=== PATIENT | male | born 1990 | race Caucasian/White ===

== ENCOUNTER 2023-10-31 18:01 | Emergency (ER) | payer OTHER, SELFPAY ==
[2023-10-31] VITALS (13 sets, daily range): BP systolic 129–136; BP diastolic 72–90; PULSE 79–97; TEMP 37.1; O2SAT 94–98; BMI 26.2
--- NOTE | 2023-10-31 18:09 | ECG_ITS ---
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
--- NOTE | 2023-10-31 18:09 | CT_ITS ---
[address] [address] Patient Name: RACHEL GOODMAN MRN: [id number] date: 1990 Sex: M Assigned Patient Location: ED.MAIN Current Patient Location: ER Accession/Order Number: [id number] Exam Date: 10/31/2023 18:44 Report Date: 10/31/2023 19:03 At the request of: LARRY STARK Procedure: CT head/brain wo con EXAMINATION: CT head/brain wo con, 10/31/2023 6:44 PM EDT HISTORY: Syncope COMPARISON: None. TECHNIQUE: CT scan of the head was performed without IV contrast. CT dose reduction technique was used, including Automated Exposure Control. FINDINGS: BRAIN PARENCHYMA/CSF SPACES: Ventricles are normal in size for age. There is no hemorrhage, mass effect or midline shift. There are no other significant findings. PARANASAL SINUSES: Clear. SKULL BASE AND CALVARIUM: Normal. EXTRACRANIAL SOFT TISSUES: Normal. CT/CT head/brain wo con IMPRESSION: No acute intracranial findings. Electronically authenticated by: LORE CARDENAS Date: 10/31/2023 19:03
--- NOTE | 2023-10-31 18:13 | ED.GENADUL1 ---
HPI HPI - General Adult General Chief complaint: Syncope Stated complaint: SYNCOPE Time Seen by Provider: 10/31/23 18:09 Source: patient Mode of arrival: ambulance History of Present Illness HPI narrative: Patient is a 32-year-old male who presents to the emergency department after syncopal episode at work. 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 He has been not feeling well for the last several days and states he has been having headaches. Head injury was not reported by EMS or his coworkers. He continues to have a headache at this time. He has had no fevers, upper respiratory symptoms, chest pain, dizziness, vomiting or diarrhea. He reports some pain to the left knee but no other areas of injury or pain. He has not been up to walk since he had the syncopal episode. Related Data Home Medications ?Medication ?Instructions ?Recorded ?Confirmed No Known Home Medications 10/31/23 10/31/23 Previous Rx's ?Medication ?Instructions ?Recorded ketorolac 10 mg tablet 10 mg PO TID PRN pain #10 tabs 10/31/23 ondansetron 4 mg disintegrating 4 mg PO Q6H PRN nausea and 10/31/23 tablet vomiting #12 tabs Allergies Allergy/AdvReac Type Severity Reaction Status Date / Time No Known Drug Allergies Allergy Verified 10/31/23 18:05 Opioid HPI Opioid Management Most Recent Opioid Data: Last ED Pain Assessment 10/31/23 18:25 Review of Systems ROS Constitutional Denies: fever or chills Ears, nose, mouth, and throat Denies: throat pain or nasal congestion Cardiovascular Denies: chest pain Respiratory Denies: shortness of breath or cough Gastrointestinal Denies: nausea or vomiting Musculoskeletal Reports: extremity pain; Denies: back pain or neck pain Integumentary/Breast Denies: rash Neurological Reports: headache; Denies: numbness in extremities, weakness in extremities or dizziness Hematologic/Lymphatic Denies: easy bruising or easy bleeding Exam Narrative Exam Narrative: Gen.: Awake, alert, in no distress Head: Normocephalic, atraumatic ENT: Moist mucous membranes Respiratory: No respiratory distress, lungs clear bilaterally Cardio: Regular rate and rhythm Gastrointestinal: Abdomen is soft, nondistended and nontender to palpation Extremities: Moves extremities equally, No swelling, ecchymosis or obvious deformity of the left knee Psych: Normal mood and affect Neuro: No focal neuro deficit Skin: Warm, dry, intact Constitutional Vital Signs, click to edit/add: Last Vital Signs Temp 98.7 F 10/31/23 18:02 Pulse 79 10/31/23 19:56 Resp 14 10/31/23 19:56 BP 129/72 10/31/23 19:56 Pulse Ox 96 10/31/23 19:56 O2 Del Method Room Air 10/31/23 18:02 Course Vital Signs Vital signs: Vital Signs Temperature 98.7 F 10/31/23 18:02 Pulse Rate 88 10/31/23 18:02 Respiratory Rate 14 10/31/23 18:02 Blood Pressure 136/90 10/31/23 18:02 Pulse Oximetry 98 10/31/23 18:02 Oxygen Delivery Method Room Air 10/31/23 18:02 Temperature 98.7 F 10/31/23 18:02 Pulse Rate 79 10/31/23 19:56 Respiratory Rate 14 10/31/23 19:56 Blood Pressure 129/72 10/31/23 19:56 Pulse Oximetry 96 10/31/23 19:56 Oxygen Delivery Method Room Air 10/31/23 18:02 Medical Decision Making MDM Narrative Medical decision making narrative: Stable vital signs on the arrival to the ER, no PE risk factors. CT of the brain, chest x-ray and the x-rays are unremarkable although the knee has a small joint effusion. He was placed in an Abdoulaye wrap and remains neurovascularly intact. IV fluids, Toradol given for headache. He had no episodes of emesis in the ER, he was able to ambulate. He is discharged home to increase fluids, follow-up with PCP and return to the ER if symptoms change or worsen Medical Records Medical records reviewed: Yes I reviewed the patient's medical records Lab Data Lab results reviewed: Yes I reviewed the patient's lab results Labs: Lab Results 10/31/23 Range/Units 18:31 WBC 7.0 (4.0-11.0) 10^3/uL RBC 4.82 (4.70-6.10) 10^6/uL Hgb 14.6 (14.0-18.0) g/dL Hct 43.1 (42.0-54.0) % MCV 89.4 (80.0-94.0) fL MCH 30.3 (25.9-34.0) pg MCHC 33.9 (29.9-35.2) g/dL RDW 12.4 (11.0-15.0) % Plt Count 187 (150-450) 10^3/uL MPV 9.7 (9.5-13.5) fL Neut % (Auto) 74.1 (43.0-75.0) % Lymph % (Auto) 20.3 L (20.5-60.0) % [place] % (Auto) 5.0 (1.7-12.0) % Eos % (Auto) 0.0 L (0.9-7.0) % Baso % (Auto) 0.3 (0.2-2.0) % Neut # (Auto) 5.2 (1.4-6.5) 10^3/uL Lymph # (Auto) 1.4 (1.2-3.8) 10^3/uL [place] # (Auto) 0.4 (0.3-0.8) 10^3/uL Eos # (Auto) 0.0 (0.0-0.7) 10^3/uL Baso # (Auto) 0.0 (0.0-0.1) 10^3/uL Abs Immat Gran (auto) 0.02 (0.00-0.03) 10^3/uL Imm/Tot Granulo (auto) 0.3 (0.0-0.5) % Sodium 142 (136-145) mmol/L Potassium 4.1 (3.5-5.1) mmol/L Chloride 106 (98-107) mmol/L Carbon Dioxide 25.5 (21.0-32.0) mmol/L Anion Gap 14.6 BUN 14.0 (7.0-18.0) mg/dL Creatinine 1.13 (0.70-1.30) mg/dL Est GFR ( Amer) >60 (>=60) Est GFR (Non-Af Amer) >60 (>=60) BUN/Creatinine Ratio 12.4 Glucose 88 (74-106) mg/dL Lactate 0.8 (0.4-2.0) mmol/L Calcium 9.0 (8.5-10.1) mg/dL Total Bilirubin 1.6 H (0.2-1.0) mg/dL AST 26 (15-37) U/L ALT 61 (16-63) U/L Alkaline Phosphatase 54 (46-116) U/L Total Creatine Kinase 172 (39-308) U/L Troponin I High Sens <4.0 L (4.0-76.1) pg/mL Total Protein 7.1 (6.4-8.2) g/dL Albumin 4.0 (3.4-5.0) g/dL Globulin 3.1 g/dL Albumin/Globulin Ratio 1.3 TSH 1.257 (0.358-3.740) uIU/mL Imaging Data CT scan - head: Attestation: I have reviewed the pertinent imaging results. Radiologist's impression: ITS Impressions Head CT 10/31/23 18:09 IMPRESSION: No acute intracranial findings. Electronically authenticated by: LORE CARDENAS Date: 10/31/2023 19:03 Chest X-Ray 10/31/23 18:55 IMPRESSION: No acute cardiopulmonary abnormality. Electronically authenticated by: LISA TRAN Date: 10/31/2023 19:48 Knee X-Ray 10/31/23 18:55 IMPRESSION: Small knee joint effusion without acute fracture. Electronically authenticated by: LISA TRAN Date: 10/31/2023 19:47 ECG Data Attestation: I personally reviewed and interpreted this ECG as follows: (Normal sinus rhythm at a rate of 91, no acute ST elevation or ectopy. EKG reviewed by attending physician) Discharge Plan Discharge Stand Alone Forms: Portal Instructions Chief Complaint: Syncope Clinical Impression: Syncope Patient Disposition: Home, Self-Care Time of Disposition Decision: 20:17 Condition: Good Prescriptions / Home Meds: New ketorolac 10 mg tablet 10 mg PO TID PRN (Reason: pain) Qty: 10 0RF ondansetron 4 mg tablet,disintegrating 4 mg PO Q6H PRN (Reason: nausea and vomiting) Qty: 12 0RF No Action No Known Home Medications Print Language: Malawian Instructions: Syncope (ED) Referrals: [facility] [Outside] - As soon as possible Physician,Non-Staff, MD [Primary Care Provider] - 1 week
[2023-10-31] MEDS: 0.9 % SODIUM CHLORIDE 1,000 ML 999 ML IV (18:22)
[2023-10-31] MEDS: KETOROLAC TROMETHAMINE 30 MG/ML VIAL IVP (18:22)
[2023-10-31 18:39] LABS: Basophils Percent Auto 0.3 % (0.2-2.0); Hematocrit 43.1 % (42.0-54.0); Hemoglobin 14.6 g/dL (14.0-18.0); Immature Granulocytes Abs Auto 0.02 10^3/uL (0.00-0.03); Immature Granulocytes Pct Auto 0.3 % (0.0-0.5); Lymphocytes Absolute Auto 1.4 10^3/uL (1.2-3.8); Lymphocytes Percent Auto 20.3 % (20.5-60.0); Mean Corpuscular HGB Conc 33.9 g/dL (29.9-35.2); Mean Corpuscular Hemoglobin 30.3 pg (25.9-34.0); Mean Corpuscular Volume 89.4 fL (80.0-94.0); Mean Platelet Volume 9.7 fL (9.5-13.5); Monocytes Absolute Auto 0.4 10^3/uL (0.3-0.8); Neutrophils Absolute Auto 5.2 10^3/uL (1.4-6.5); Neutrophils Percent Auto 74.1 % (43.0-75.0); Platelet Count 187 10^3/uL (150-450); Red Blood Count 4.82 10^6/uL (4.70-6.10); Red Cell Distribution Width 12.4 % (11.0-15.0)
--- NOTE | 2023-10-31 18:55 | XR_ITS ---
The [address] [address] Patient Name: RACHEL GOODMAN MRN: [id number] date: 1990 Sex: M Assigned Patient Location: ED.MAIN Current Patient Location: ER Accession/Order Number: [id number] Exam Date: 10/31/2023 18:49 Report Date: 10/31/2023 19:48 At the request of: LARRY STARK Procedure: XR chest 1V EXAMINATION: XR chest 1V 10/31/2023 4:47 PM PDT HISTORY: Syncope TECHNIQUE: Single frontal view of the chest acquired. COMPARISONS: None. FINDINGS: Lines/tubes/other: None. Heart and mediastinum: The heart and the mediastinum are within normal limits for technique. Bones: No acute osseous abnormality. Lungs: The lungs are clear. There is no evidence of pneumonia or pulmonary edema. Pleura: There is no significant pleural effusion or pneumothorax. Other: None. XR/XR chest 1V IMPRESSION: No acute cardiopulmonary abnormality. Electronically authenticated by: LISA TRAN Date: 10/31/2023 19:48
--- NOTE | 2023-10-31 18:55 | XR_ITS ---
[place] [id number] Patient Name: RACHEL GOODMAN MRN: [id number] date: 1990 Sex: M Assigned Patient Location: ED.MAIN Current Patient Location: ED.MAIN Accession/Order Number: [id number] Exam Date: 10/31/2023 18:49 Report Date: 10/31/2023 19:47 At the request of: LARRY STARK Procedure: XR knee LT 4V STUDY: XR knee LT 4V, [id number] HISTORY: Left knee pain COMPARISON: None FINDINGS: No acute fracture, dislocation, or suspicious osseous lesion. No significant degenerative changes. Small knee joint effusion. XR/XR knee LT 4V IMPRESSION: Small knee joint effusion without acute fracture. Electronically authenticated by: LISA TRAN Date: 10/31/2023 19:47
[2023-10-31 18:56] LABS: Creatine Kinase 172 U/L (39-308)
[2023-10-31 18:59] LABS: Lactate/Lactic Acid 0.8 mmol/L (0.4-2.0)
[2023-10-31 19:07] LABS: Alanine Aminotransferase 61 U/L (16-63); Albumin Globulin Ratio 1.3; Alkaline Phosphatase 54 U/L (46-116); Anion Gap 14.6; Aspartate Amino Transferase 26 U/L (15-37); BUN Creatinine Ratio 12.4; Bilirubin Total 1.6 mg/dL (0.2-1.0); Carbon Dioxide 25.5 mmol/L (21.0-32.0); Chloride 106 mmol/L (98-107); Estimated GFR (African America >60 (>=60); Estimated GFR (Non-African Ame >60 (>=60); Globulin 3.1 g/dL; Glucose 88 mg/dL (74-106); Potassium 4.1 mmol/L (3.5-5.1); Sodium 142 mmol/L (136-145); Thyroid Stimulating Hormone 1.257 uIU/mL (0.358-3.740); Total Protein 7.1 g/dL (6.4-8.2); Troponin I High Sensitivity <4.0 pg/mL (4.0-76.1)
[2023-10-31 20:13] LABS: Bilirubin Urine NEGATIVE (NEGATIVE); Blood Urine NEGATIVE (NEGATIVE); Clarity Urine CLEAR (CLEAR); Color Urine YELLOW (YELLOW); Glucose Urine UA NEGATIVE (NEGATIVE); Ketones Urine TRACE mg/dL (NEGATIVE); Leukocyte Esterase Urine TRACE (NEGATIVE); Nitrite Urine NEGATIVE (NEGATIVE); Protein Urine NEGATIVE (NEG/TRACE)
[2023-10-31 20:19] LABS: Urine Microscopic Indicated YES
[2023-10-31 20:25] LABS: Bacteria Urine NONE SEEN #/HPF (NONE SEEN); Cast Seen? NONE SEEN #/LPF (NONE SEEN); Crystals Seen? None Seen #/HPF (None Seen); Mucus Urine SMALL (NONE SEEN); RBC Urine NONE SEEN #/HPF (0-2); Squamous Epithelial Cell Urine NONE SEEN #/LPF (NONE/RARE); Urine Culture Indicated NO
== END 2023-10-31 20:43 | disposition home or self-care (01) ==
PROVIDERS: Physician Assistant; Emergency Provider Emergency Medicine
DX: R55 Syncope and collapse (principal)
CPT/HCPCS: 36415; 70450; 71045; 73564; 80053; 81001; 82550; 83605; 84443; 84484; 85025; 93005; 96361; 96374; 99285